=== PATIENT | female | born 1985 | race Caucasian/White ===

== ENCOUNTER → 2016-12-28 | Outpatient (CLI) | payer OTHER ==
[~2016-12-28] MED LIST: FERR325T16 PO; HYDR1TAB12 PO; IBUP800T PO; SENN-1 PO; SIME80TA16
== END | disposition home or self-care (01) ==
LOC: CFH 08:30
PROVIDERS: ATTEND Obstetrics & Gynecology
DX: N64.4 Mastodynia (principal)

== ENCOUNTER 2021-01-20 15:51 | Emergency (ER) | payer OTHER ==
[~2021-01-20] VITALS: Ht 157.5 cm; Wt 66.9 kg
[~2021-01-20 15:51] MED LIST changes: -HYDR1TAB12 PO; +HYDR1TAB13 PO; +IBUP-1223 PO; -IBUP800T PO; -SENN-1 PO; +SENN-92 PO
--- NOTE | 2021-01-20 17:10 | NUR ---
CC OF BILAT FOOT/LEG PAIN AFTER FALLING APPROX 15 FT AT [facility] AROUND 1500 TODAY. R > L. PT DENIES HITTING HEAD OR LOC. STATES SHE HEARD A POP BUT ISN'T SURE IN WHICH LEG OR FOOT. HAS NUMBNESS AND TINGLING IN RIGHT FOOT AND LEG BUT CAN'T TELL HOW HIGH UP LEG IT GOES. PT ABLE TO WIGGLE TOES AND WALK. +CMS INTACT. MOTHER AT BEDSIDE. NO REDNESS OR OBVIOUS SWELLING NOTED, SKIN INTACT.
[2021-01-20] MEDS ORDERED: METHOCARBAMOL 750 MG TABLET PO ONE (17:30)
[2021-01-20] MEDS ORDERED: METHOCARBAMOL 750 MG TABLET ONE (17:37)
[2021-01-20 19:29] VITALS: BP 98/56
== END 2021-01-20 19:31 | disposition home or self-care (01) ==
LOC: ED 18:17
DX: S92.511A Displaced fracture of proximal phalanx of right lesser toe(s), initial encounter for closed fracture (principal); S39.012A Strain of muscle, fascia and tendon of lower back, initial encounter; S70.01XA Contusion of right hip, initial encounter; S90.32XA Contusion of left foot, initial encounter; S90.31XA Contusion of right foot, initial encounter; W01.0XXA Fall on same level from slipping, tripping and stumbling without subsequent striking against object, initial encounter; Y93.89 Activity, other specified; Y92.39 Other specified sports and athletic area as the place of occurrence of the external cause; Y99.8 Other external cause status
CPT/HCPCS: 29515; 72110; 99284